=== PATIENT | female | born 1975 | race Caucasian/White ===

== ENCOUNTER 2020-03-13 14:18 | Emergency (ER) | payer BC ==
--- NOTE | 2020-03-13 14:29 | EDM.PDOC ---
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 She reports that she started spotting about 2 weeks ago when she expected her normal period to show up. Yesterday she started to bleed very heavily per vagina which is continued into today. She states she is passing clots almost the size of small tennis balls. Shaded diffuse lower abdominal cramping pain and mild low back pain. She is pretty confident she is not . Only abdominal surgery in the past has been a tubal ligation. She has never had dysfunctional uterine bleeding in the past. She reports that today she feels lightheaded dizzy and weak when standing. Not taken anything today for cramping pain but did take Motrin yesterday. She did eat and drink normally this morning. Far today she has soaked 4-5 pads. Onset: Sudden Onset Date: 03/12/20 (To bleed heavily per vagina yesterday) Duration: Hour(s): (Night.), Constant, Getting Worse Location: Reports: Abdomen (Use suprapubic abdominal cramping pain), Other (Heavy bleeding per vagina.) Quality: Reports: Sharp (Ramping pain i.e. menstrual cramping), Stabbing Severity: Moderate Improves with: Reports: None Worsens with: Reports: None Context: Reports: Other (Element of heavy bleeding per vagina starting yesterday with 2-week history of spotting prior to that.). Denies: Activity, Exercise, Lifting, Sick Contact, Trauma Associated Symptoms: Reports: Malaise, Other (Is lightheaded dizzy and generally weak.). 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 Denies: Fever, Chills, Weight Loss HEENT: Reports: No Symptoms Respiratory: Reports: No Symptoms Cardiovascular: Reports: No Symptoms Endocrine: Reports: Fatigue GI/Abdominal: Reports: Abdominal Pain (Prepubic abdominal cramping pain i.e. menstrual cramps.). Denies: Constipation, Diarrhea, Nausea, Stool Incontinence, Vomiting : Reports: Irregular Menses (Menorrhagia with heavy bleeding per vagina starting yesterday predated by 2-week history of spotting per vagina.). Denies: Dysuria, Flank Pain, Frequency Musculoskeletal: Reports: Back Pain (L diffuse low back pain) Skin: Reports: No Symptoms Neurological: Reports: Dizziness Psychiatric: Reports: No Symptoms Hematologic/Lymphatic: Reports: No Symptoms Immunologic: Reports: No Symptoms ED EXAM, RENAL/ - Physical Exam Exam: See Below Exam Limited By: No Limitations General Appearance: Alert, WD/WN, Anxious (Only anxious.), Other (Temperature is 37.3 heart rate is 75 and sinus respiratory to 16 pulse ox 100% on room air BP 130/89. Orthostatic BPs were normal.) Eye Exam: Bilateral Eye: Normal Inspection, PERRL, Other (Mild blepharal pallor.) Throat/Mouth: Normal Inspection, Normal Lips, Normal Oropharynx Head: Atraumatic, Normocephalic Neck: Normal Inspection, Supple, Non-Tender, Full Range of Motion. No: Carotid Bruit, Lymphadenopathy (L), Lymphadenopathy (R), Thyromegaly Respiratory/Chest: No Respiratory Distress, Lungs Clear, Normal Breath Sounds, No Accessory Muscle Use Cardiovascular: Normal Peripheral Pulses, Regular Rate, Rhythm, No Edema, No Murmur, No Rub GI/Abdominal: Normal Bowel Sounds, Soft, Non-Tender, No Organomegaly, No Distention, Tender. No: Guarding, Rigid, Rebound Extremities: Normal Inspection (Normally tender suprapubically no peritoneal signs.), Normal Range of Motion, Non-Tender, No Pedal Edema, Other Neurological: Alert, Oriented, CN II-XII Intact, Normal Cognition Psychiatric: Normal Mood, Anxious Skin Exam: Warm, Dry, Intact, Normal Color, No Rash Course - Vital Signs Last Recorded V/S: Last Vital Signs Temp 37.3 C 03/13/20 14:26 Pulse 75 03/13/20 14:26 Resp 16 03/13/20 14:26 BP 130/89 03/13/20 14:26 Pulse Ox 100 03/13/20 14:26 Orthostatic Blood Pressure [ 128/84 Standing] Orthostatic Blood Pressure [ 122/88 Supine] - Orders/Labs/Meds Labs: Laboratory Tests 03/13/20 03/13/20 03/13/20 Range/Units 14:35 14:37 14:37 WBC 9.27 (3.98-10.04) K/mm3 RBC 3.96 L (3.98-5.22) M/mm3 Hgb 11.7 (11.2-15.7) gm/dl Hct 35.6 (34.1-44.9) % MCV 89.9 (79.4-94.8) fl MCH 29.5 (25.6-32.2) pg MCHC 32.9 (32.2-35.5) g/dl RDW Std Deviation 42.0 (36.4-46.3) fL Plt Count 258 (182-369) K/mm3 MPV 10.0 (9.4-12.3) fl Neut % (Auto) 66.9 (34.0-71.1) % Lymph % (Auto) 22.1 (19.3-51.7) % [place] % (Auto) 7.2 (4.7-12.5) % Eos % (Auto) 3.2 (0.7-5.8) Baso % (Auto) 0.3 (0.1-1.2) % Neut # (Auto) 6.19 H (1.56-6.13) K/mm3 Lymph # (Auto) 2.05 (1.18-3.74) K/mm3 [place] # (Auto) 0.67 H (0.24-0.36) K/mm3 Eos # (Auto) 0.30 (0.04-0.36) K/mm3 Baso # (Auto) 0.03 (0.01-0.08) K/mm3 PT 10.4 (9.7-12.0) SECONDS INR 0.95 APTT 26 (22-31) SECONDS Sodium (136-145) mEq/L Potassium (3.5-5.1) mEq/L Chloride (98-107) mEq/L Carbon Dioxide (21-32) mEq/L Anion Gap (5-15) BUN (7-18) mg/dL Creatinine (0.55-1.02) mg/dL Est Cr Clr Drug Dosing mL/min Estimated GFR (MDRD) (>60) mL/min BUN/Creatinine Ratio (14-18) Glucose (74-106) mg/dL Calcium (8.5-10.1) mg/dL Total Bilirubin (0.2-1.0) mg/dL AST (15-37) U/L ALT (14-59) U/L Alkaline Phosphatase (46-116) U/L Total Protein (6.4-8.2) g/dl Albumin (3.4-5.0) g/dl Globulin gm/dL Albumin/Globulin Ratio (1-2) TSH 3rd Generation 3.590 (0.358-3.74) uIU/mL HCG, Quant mIU/mL Blood Type Gel Antibody Screen 03/13/20 03/13/20 Range/Units 14:37 14:37 WBC (3.98-10.04) K/mm3 RBC (3.98-5.22) M/mm3 Hgb (11.2-15.7) gm/dl Hct (34.1-44.9) % MCV (79.4-94.8) fl MCH (25.6-32.2) pg MCHC (32.2-35.5) g/dl RDW Std Deviation (36.4-46.3) fL Plt Count (182-369) K/mm3 MPV (9.4-12.3) fl Neut % (Auto) (34.0-71.1) % Lymph % (Auto) (19.3-51.7) % [place] % (Auto) (4.7-12.5) % Eos % (Auto) (0.7-5.8) Baso % (Auto) (0.1-1.2) % Neut # (Auto) (1.56-6.13) K/mm3 Lymph # (Auto) (1.18-3.74) K/mm3 [place] # (Auto) (0.24-0.36) K/mm3 Eos # (Auto) (0.04-0.36) K/mm3 Baso # (Auto) (0.01-0.08) K/mm3 PT (9.7-12.0) SECONDS INR APTT (22-31) SECONDS Sodium 140 (136-145) mEq/L Potassium 3.8 (3.5-5.1) mEq/L Chloride 104 (98-107) mEq/L Carbon Dioxide 27 (21-32) mEq/L Anion Gap 12.8 (5-15) BUN 11 (7-18) mg/dL Creatinine 0.9 (0.55-1.02) mg/dL Est Cr Clr Drug Dosing 76.23 mL/min Estimated GFR (MDRD) > 60 (>60) mL/min BUN/Creatinine Ratio 12.2 L (14-18) Glucose 88 (74-106) mg/dL Calcium 8.3 L (8.5-10.1) mg/dL Total Bilirubin 0.4 (0.2-1.0) mg/dL AST 17 (15-37) U/L ALT 24 (14-59) U/L Alkaline Phosphatase 66 (46-116) U/L Total Protein 7.1 (6.4-8.2) g/dl Albumin 3.5 (3.4-5.0) g/dl Globulin 3.6 gm/dL Albumin/Globulin Ratio 1.0 (1-2) TSH 3rd Generation (0.358-3.74) uIU/mL HCG, Quant < 1.0 mIU/mL Blood Type O NEGATIVE Gel Antibody Screen Negative Meds: Medications Discontinued Medications Generic Name Dose Route Start Last Admin Trade Name Freq PRN Reason Stop Dose Admin Estrogens Conjugated 25 mg 03/13/20 16:02 03/13/20 16:21 Premarin IVPUSH 03/13/20 16:03 25 mg ONETIME ONE Administration Dextrose/Sodium Chloride 1,000 mls @ 999 mls/hr 03/13/20 14:45 03/13/20 14:58 Dextrose 5%-Normal Saline IV 999 mls/hr ASDIRECTED ZAHRA Administration Ketorolac Tromethamine 30 mg 03/13/20 14:45 03/13/20 14:58 Toradol IVPUSH 30 mg ONETIME ZAHRA Administration Medroxyprogesterone Acetate 10 mg 03/13/20 16:02 03/13/20 16:21 Provera PO 03/13/20 16:03 10 mg ONETIME ONE Administration - Radiology Interpretation Free Text/Narrative:: 44-year-old female presents the ED with heavy menstrual bleeding or menorrhagia. This is predated by 2 weeks of spotting per vagina at the time she expected her normal period to start 2 weeks ago. She started bleeding very heavily per vagina yesterday and this continues today passing clots the size of tennis balls per vagina. Associated lower abdominal cramping pain. Starting to feel lightheaded dizzy and weak. States she has soaked 4-5 pads already today. She has never had heavy bleeding like this in the past. She denies any possibility of . Plan IV D5 normal saline at open. Toradol 30 mg IV for pain relief. Routine labs to include type and screen and a serum beta-hCG and TSH. - Re-Assessments/Exams Free Text/Narrative Re-Assessment/Exam: 03/13/20 15:11 White blood cell count is 9.27 with auto differential showing 67% neutrophils. Hemoglobin is 11.7 with hematocrit of 35.6. Platelet count 258,000. PT is 10.4 with an INR of 0.95 PTT is 26. 03/13/20 15:38 Quantitative hCG is less than 1.0. Sodium is 140 with a potas sium of 3.8 chloride 104 with a bicarb of 27. Anion gap is 12.8. BUN is 11 with a creatinine of 0.9. GFR is greater than 60. Glucose is 88 with a calcium of 8.3. Liver function normal total protein 7.1 with an albumin fraction of 3.5 TSH is normal at 3.59 03/13/20 16:04 the findings with the patient and decision made to proceed with Premarin 25 mg IV and start her on oral Provera 10 mg once daily for 10 days consecutively at bedtime. You should stop or come under good control within 48 hours. If not she will require follow-up with chain builder. 03/13/20 16:55 report that they were able to find the Premarin and administered the 25 mg IV as ordered. Also 1 tablet of Provera 10 mg strength to be taken at bedtime tonight. Script written for Provera 10 milligrams once daily at bedti fl for another 9 days. 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 Departure - Departure Time of Disposition: 16:56 Disposition: Home, Self-Care 01 Condition: Fair Clinical Impression: Dysfunctional uterine hemorrhage - Discharge Information *PRESCRIPTION DRUG MONITORING PROGRAM REVIEWED*: Not Applicable *COPY OF PRESCRIPTION DRUG MONITORING REPORT IN PATIENT BONG: Not Applicable Prescriptions: medroxyPROGESTERone [Provera] 10 mg PO DAILY #10 tab Referrals: PCP,None [Primary Care Provider] - Forms: ED Department Discharge Additional Instructions: Evaluation in the emergency room today in regards to heavy bleeding per vagina which we called menorrhagia. Lab tests revealed that your hemoglobin is still in the normal range at 11.7. Normal would be around 14.0. Low hemoglobin is under 9.0. test is negative. All the other lab tests were normal. Treatment is therefore Premarin 25 mg given intravenously in the ER to help stop the severe blood loss per vagina. You will also need to take a tablet of progesterone called Provera 10 mg every night at bedtime starting tonight. This will be taken once daily with some food for 10 days. Expect flow to decrease and almost subside within 48 hours. 2 to 3 days after the last Provera tablet has been taken you will have another.. The the idea is to reset your hormone balance and make the lining of uterus all grow at the same rate with the Provera tablet. If you continue to flow heavily or. Returns heavy in the near future you will require follow-up with a chain builder to have imaging of the lining of the uterus and perhaps endometrial biopsy performed.
[2020-03-13] MEDS ORDERED: Dextrose 5%-0.9% NaCl 1,000 ML IV SCH (14:45)
[2020-03-13] MEDS ORDERED: Ketorolac 30 MG/ML SDV IVPUSH SCH (14:45)
== END 2020-03-13 17:08 | disposition home or self-care (01) ==
LOC: JD.ED 14:18
DX: N93.8 Other specified abnormal uterine and vaginal bleeding (principal); Z90.49 Acquired absence of other specified parts of digestive tract
CPT/HCPCS: 36415; 80053; 84443; 84702; 85025; 85610; 85730; 86850; 86900; 86901; 96361; 96374; 96375; 99284; A9270; J1410; J1885; J7042

== ENCOUNTER 2020-12-12 09:30 | Emergency (ER) | payer BC ==
[2020-12-12] MEDS ORDERED: Sodium Chloride 0.9% 1,000 ML IV ONE (09:47)
[2020-12-12] MEDS ORDERED: Sodium Chloride 0.9% 10 ML Syringe FLUSH PRN (09:47)
--- NOTE | 2020-12-12 10:04 | EDM.PDOC ---
ED HPI GENERAL MEDICAL PROBLEM - General Chief Complaint: IMAGING ADMINISTRATOR Problem Stated Complaint: HEMORRHAGING Time Seen by Provider: 12/12/20 09:35 Source of Information: Reports: Patient History Limitations: Reports: No Limitations - History of Present Illness INITIAL COMMENTS - FREE TEXT/NARRATIVE: 45-year-old female presents to the emergency department with complaints of heavy vaginal bleeding for the past 4 days. Patient states that she started her menstrual cycle 4 days ago but her vaginal bleeding has increased significantly over the past 2 days. She states that she is passing large clots and going through about 2 pads every hour for the past 2 days. She states that 2 nights ago she passed a clot the size of an orange and 1 the same size yesterday morning. Patient states she is having mild lower abdominal cramping and mild cramping into her back. She states that her menstrual cycle is still regular coming about every 28 to 30 days and lasting about 4 to 5 days. She states that her flow is normally not heavy. She states that over the course the past 2 days when she stands up she becomes dizzy, and she is having some palpitations associated with this. She does report having a tubal ligation in the past so she does not feel she could be at this time. She states she had a similar incident to this a couple of months ago and was seen and treated in our emergency department. Lower Abdomen Pain Score (Numeric/FACES): 3 - Related Data Allergies Allergy/AdvReac Type Severity Reaction Status Date / Time No Known Allergies Allergy Verified 12/12/20 09:37 Home Meds: Home Meds Norethindrone Acetate [Aygestin] 10 mg PO DAILY #16 tablet 12/12/20 [Rx] Past Medical History IMAGING ADMINISTRATOR History: Reports: Other IMAGING ADMINISTRATOR History: , D/c 2009 - Past Surgical History GI Surgical History: Reports: Cholecystectomy (Laparoscopic cholecystectomy) Social & Family History - Family History Family Medical History: No Pertinent Family History - Tobacco Use Tobacco Use Status *Q: Never Tobacco User Second Hand Smoke Exposure: No - Caffeine Use Caffeine Use: Reports: None - Recreational Drug Use Recreational Drug Use: No - Living Situation & Occupation Living situation: Reports: Occupation: Unemployed ED ROS GENERAL - Review of Systems Review Of Systems: Comprehensive ROS is negative, except as noted in HPI. ED EXAM, RENAL/ - Physical Exam Exam: See Below Exam Limited By: No Limitations General Appearance: Alert, WD/WN, No Apparent Distress Ears: Normal External Exam, Hearing Grossly Normal Nose: Normal Inspection, Normal Mucosa Throat/Mouth: Normal Inspection, Normal Lips, Normal Voice, No Airway Compromise Head: Atraumatic, Normocephalic Neck: Normal Inspection, Supple, Non-Tender, Full Range of Motion Respiratory/Chest: No Respiratory Distress, Lungs Clear, Normal Breath Sounds, No Accessory Muscle Use, Chest Non-Tender Cardiovascular: Normal Peripheral Pulses, No Edema, No Murmur, Tachycardia (115) GI/Abdominal: Normal Bowel Sounds, Soft, Non-Tender, No Distention (Female) Exam: Normal External Exam, Normal Bimanual Exam, Vaginal Bleeding (moderate amount of active vaginal bleeding). No: Adnexal Mass, Adnexal Tenderness, Cervix Motion Tenderness Rectal (Female) Exam: Deferred Back Exam: Normal Inspection, Full Range of Motion Extremities: Normal Inspection, Normal Range of Motion, Non-Tender, No Pedal Edema, Normal Capillary Refill Neurological: Alert, Oriented, Normal Cognition Psychiatric: Normal Affect, Normal Mood Skin Exam: Warm, Dry, Intact, Normal Color, No Rash Lymphatic: No Adenopathy Course - Vital Signs Text/Narrative:: 45-year-old female with a 4-day history of vaginal bleeding and a 2-day history of very heavy vaginal bleeding passing large clots the size of an orange x2 episodes. She is going through about 2 pads per hour over the course the past 2 days. She is having mild menstrual cramping and back cramping. She states she had a similar episode to this about 2 months ago. Denies any recent fever, chills, nausea, vomiting, headache or diarrhea. States she is noticing that she is dizzy when she is standing up and ambulating and has noticed heart palpitations. Nursing staff has checked the patient and she is orthostatic. I have ordered a liter of IV fluids to be bolused, saline lock, labs, test, and a non-OB transvaginal ultrasound. Last Recorded V/S: Last Vital Signs Temp 98.1 F 12/12/20 09:35 Pulse 115 H 12/12/20 09:35 Resp 20 12/12/20 09:35 BP 125/97 H 12/12/20 09:35 Pulse Ox 100 12/12/20 09:35 Orthostatic Blood Pressure [ 100/79 Standing] Orthostatic Blood Pressure [ 116/75 Supine] - Orders/Labs/Meds Orders: Active Orders 24 hr Category Date Time Status Sodium Chloride 0.9% [Saline Flush] Med 12/12/20 09:47 Active 10 ml FLUSH ASDIRECTED PRN Saline Lock Insert [OM.PC] Stat Oth 12/12/20 09:47 Ordered Medication Orders Sodium Chloride (Sodium Chloride 0.9% 10 Ml Syringe) 10 ml FLUSH ASDIRECTED PRN PRN Reason: Keep Vein Open Last Admin: 12/12/20 09:54 Dose: 10 ml Documented by: DIXON Labs: Laboratory Tests 12/12/20 12/12/20 12/12/20 Range/Units 09:45 09:45 09:45 WBC 6.58 (3.98-10.04) K/mm3 RBC 3.40 L (3.98-5.22) M/mm3 Hgb 8.1 L D (11.2-15.7) gm/dl Hct 27.5 L (34.1-44.9) % MCV 80.9 D (79.4-94.8) fl MCH 23.8 L (25.6-32.2) pg MCHC 29.5 L (32.2-35.5) g/dl RDW Std Deviation 44.3 (36.4-46.3) fL Plt Count 299 (182-369) K/mm3 MPV 10.4 (9.4-12.3) fl Neut % (Auto) 66.2 (34.0-71.1) % Lymph % (Auto) 23.1 (19.3-51.7) % Iron % (Auto) 7.1 (4.7-12.5) % Eos % (Auto) 2.6 (0.7-5.8) Baso % (Auto) 0.8 (0.1-1.2) % Neut # (Auto) 4.36 (1.56-6.13) K/mm3 Lymph # (Auto) 1.52 (1.18-3.74) K/mm3 Iron # (Auto) 0.47 H (0.24-0.36) K/mm3 Eos # (Auto) 0.17 (0.04-0.36) K/mm3 Baso # (Auto) 0.05 (0.01-0.08) K/mm3 Manual Slide Review Abnormal smear Sodium 142 (136-145) mEq/L Potassium 3.7 (3.5-5.1) mEq/L Chloride 106 (98-107) mEq/L Carbon Dioxide 22 (21-32) mEq/L Anion Gap 17.7 H (5-15) BUN 9 (7-18) mg/dL Creatinine 1.0 (0.55-1.02) mg/dL Est Cr Clr Drug Dosing 67.91 mL/min Estimated GFR (MDRD) > 60 (>60) mL/min BUN/Creatinine Ratio 9.0 L (14-18) Glucose 129 H (74-106) mg/dL Calcium 8.6 (8.5-10.1) mg/dL Total Bilirubin 0.3 (0.2-1.0) mg/dL AST 16 (15-37) U/L ALT 20 (14-59) U/L Alkaline Phosphatase 58 (46-116) U/L Total Protein 6.5 (6.4-8.2) g/dl Albumin 3.3 L (3.4-5.0) g/dl Globulin 3.2 gm/dL Albumin/Globulin Ratio 1.0 (1-2) TSH 3rd Generation (0.358-3.74) uIU/mL HCG, Qual Negative (NEGATIVE) Urine Color (Yellow) Urine Appearance (Clear) Urine pH (5.0-8.0) Ur Specific Constantine (1.005-1.030) Urine Protein (Negative) Urine Glucose (UA) (Negative) Urine Ketones (Negative) Urine Occult Blood (Negative) Urine Nitrite (Negative) Urine Bilirubin (Negative) Urine Urobilinogen (0.2-1.0) Ur Leukocyte Esterase (Negative) Urine RBC (0-5) /hpf Urine WBC (0-5) /hpf Ur Squamous Epith Cells (0-5) /hpf Amorphous Sediment (NOT SEEN) /hpf Urine Bacteria (FEW) /hpf Urine Mucus (FEW) /hpf Blood Type Gel Antibody Screen 12/12/20 12/12/20 12/12/20 Range/Units 09:45 09:45 11:40 WBC (3.98-10.04) K/mm3 RBC (3.98-5.22) M/mm3 Hgb (11.2-15.7) gm/dl Hct (34.1-44.9) % MCV (79.4-94.8) fl MCH (25.6-32.2) pg MCHC (32.2-35.5) g/dl RDW Std Deviation (36.4-46.3) fL Plt Count (182-369) K/mm3 MPV (9.4-12.3) fl Neut % (Auto) (34.0-71.1) % Lymph % (Auto) (19.3-51.7) % Iron % (Auto) (4.7-12.5) % Eos % (Auto) (0.7-5.8) Baso % (Auto) (0.1-1.2) % Neut # (Auto) (1.56-6.13) K/mm3 Lymph # (Auto) (1.18-3.74) K/mm3 Iron # (Auto) (0.24-0.36) K/mm3 Eos # (Auto) (0.04-0.36) K/mm3 Baso # (Auto) (0.01-0.08) K/mm3 Manual Slide Review Sodium (136-145) mEq/L Potassium (3.5-5.1) mEq/L Chloride (98-107) mEq/L Carbon Dioxide (21-32) mEq/L Anion Gap (5-15) BUN (7-18) mg/dL Creatinine (0.55-1.02) mg/dL Est Cr Clr Drug Dosing mL/min Estimated GFR (MDRD) (>60) mL/min BUN/Creatinine Ratio (14-18) Glucose (74-106) mg/dL Calcium (8.5-10.1) mg/dL Total Bilirubin (0.2-1.0) mg/dL AST (15-37) U/L ALT (14-59) U/L Alkaline Phosphatase (46-116) U/L Total Protein (6.4-8.2) g/dl Albumin (3.4-5.0) g/dl Globulin gm/dL Albumin/Globulin Ratio (1-2) TSH 3rd Generation 1.584 (0.358-3.74) uIU/mL HCG, Qual (NEGATIVE) Urine Color Fela H (Yellow) Urine Appearance Slt cloudy H (Clear) Urine pH 6.5 (5.0-8.0) Ur Specific Constantine 1.015 (1.005-1.030) Urine Protein 1+ H (Negative) Urine Glucose (UA) Negative (Negative) Urine Ketones Negative (Negative) Urine Occult Blood 3+ H (Negative) Urine Nitrite Negative (Negative) Urine Bilirubin Negative (Negative) Urine Urobilinogen 0.2 (0.2-1.0) Ur Leukocyte Esterase Negative (Negative) Urine RBC 10-20 H (0-5) /hpf Urine WBC Not seen (0-5) /hpf Ur Squamous Epith Cells 0-5 (0-5) /hpf Amorphous Sediment Few H (NOT SEEN) /hpf Urine Bacteria Few (FEW) /hpf Urine Mucus Not seen (FEW) /hpf Blood Type O NEGATIVE Gel Antibody Screen Negative Meds: Medications Generic Name Dose Route Start Last Admin Trade Name Freq PRN Reason Stop Dose Admin Sodium Chloride 10 ml 12/12/20 09:47 12/12/20 09:54 Sodium Chloride 0.9% 10 Ml Syringe FLUSH 10 ml ASDIRECTED PRN Administration Keep Vein Open Discontinued Medications Generic Name Dose Route Start Last Admin Trade Name Freq PRN Reason Stop Dose Admin Sodium Chloride 1,000 mls @ 999 mls/hr 12/12/20 09:47 12/12/20 09:54 Normal Saline IV 12/12/20 10:47 999 mls/hr ONETIME ONE Administration Medroxyprogesterone Acetate 10 mg 12/12/20 12:35 Medroxyprogesterone 2.5 Mg Tab PO 12/12/20 12:36 ONETIME ONE - Re-Assessments/Exams Free Text/Narrative Re-Assessment/Exam: 12/12/20 11:17 Hematology reveals a WBC of 6.58, hemoglobin 8.1, hematocrit 27.5, platelet count 299, chemistry reveals a sodium of 142, potassium 3.7, anion gap 17.7, BUN 9, creatinine 1.0, glucose 129, TSH 1.584, hCG qualitative is negative. Radiologist impression pelvic ultrasound: 1. 1 small cyst within each ovary with measurements as noted above right ovary 3.6 x 2.4 x 2.8, left ovary 3.7 x 2.7 x 2.7. Small amount of free fluid is seen within the right adnexa. 2. Increased endometrial thickness at 2.7 cm. Endometrium also contains several cystic areas most likely representing areas of blood. 12/12/20 12:03 Patient has received a full liter of normal saline. She states she no longer feels weak or dizzy after receiving this. Patient's heart rate is now in the 80s. I have placed a call to Dr. Castillo, the IMAGING ADMINISTRATOR on-call to get his recommendations on this patient. 12/12/20 12:36 Dr. Castillo recommends the patient be discharged to home to rest. Push p.o. fluids. She needs to be given a dose of Aygestin here in the ER prior to discharge to home she will take another dose this evening of Aygestin 10 mg. She will then take Aygestin 10 mg daily for 7 days. If the patient's not significantly better in the next 24 hours she needs to be followed up in the clinic by Dr. Castillo and he states he will fit her into his schedule. Also recommend that the patient follow-up in the clinic sometime this week as she does not have an IMAGING ADMINISTRATOR established at this time. Departure - Departure Time of Disposition: 12:38 Disposition: Home, Self-Care 01 Condition: Fair Clinical Impression: Dysfunctional uterine hemorrhage - Discharge Information Prescriptions: Norethindrone Acetate [Aygestin] 10 mg PO DAILY #16 tablet Referrals: PCP,None [Primary Care Provider] - Forms: ED Department Discharge Additional Instructions: You were seen in the emergency department today with complaints of vaginal bleeding. Labs were completed and your hemoglobin was on the low side which showed that you had had significant vaginal bleeding. You were given IV fluids. A transvaginal ultrasound was completed and pelvic exam. Dr. Castillo, IMAGING ADMINISTRATOR, recommends that you be treated with Aygestin 10 mg. Your first dose was given in the emergency department. You will need to take another 10 mg this evening and then daily for the next 7 days. I have sent a prescription to your pharmacy for this. If your bleeding is not significantly better in the next 24 hours you will need to follow-up with Dr. Castillo at [facility] work you into their schedule. You can call to schedule an appointment at [phone]. Strongly recommend that you do follow-up with your provider, however, this week to establish care as this is your second episode of vaginal bleeding since February. Should your condition worsen or change, do not hesitate returning to the emergency department. Sepsis Event Note (ED) - Evaluation Sepsis Screening Result: No Definite Risk - Focused Exam Vital Signs: Vital Signs Temp Pulse Resp BP Pulse Ox 12/12/20 09:35 98.1 F 115 H 20 125/97 H 100 - My Orders Last 24 Hours: My Active Orders 12/12/20 09:47 Sodium Chloride 0.9% [Saline Flush] 10 ml FLUSH ASDIRECTED PRN Saline Lock Insert [OM.PC] Stat - Assessment/Plan Last 24 Hours: My Active Orders 12/12/20 09:47 Sodium Chloride 0.9% [Saline Flush] 10 ml FLUSH ASDIRECTED PRN Saline Lock Insert [OM.PC] Stat
--- NOTE | 2020-12-12 11:13 | US ---
Pelvic ultrasound: Multiple real-time images were obtained transvaginally. Uterus is anteverted. Endometrial thickness is increased at 2.7 cm. Small cystic areas are noted within the endometrium most likely representing areas of blood. Nabothian cysts are noted. Small amount of fluid is seen within the right adnexa. Small simple cyst is noted within the right ovary measuring 2.9 cm. Left ovary shows a slightly complicated cyst measuring 2.7 cm most likely representing a hemorrhage cyst. No larger cyst or solid abnormality is seen. Measurements: Right ovary: 3.6 x 2.4 x 2.8 cm Left ovary: 3.7 x 2.7 x 2.7 cm Uterus: Length 12.2 cm, AP height 6.4 cm, transverse width 9.0 cm Impression: 1. One small cyst within each ovary with measurements as noted above. Small amount of free fluid is seen within the right adnexa. 2. Increased endometrial thickness at 2.7 cm. Endometrium also contains several cystic areas most likely representing areas of blood. Diagnostic code #3
== END 2020-12-12 12:50 | disposition home or self-care (01) ==
LOC: JD.ED 09:30
DX: N93.8 Other specified abnormal uterine and vaginal bleeding (principal); Z98.51 Tubal ligation status
CPT/HCPCS: 36415; 76830; 80053; 81001; 84443; 84703; 85025; 86850; 86900; 86901; 99285; A9270; J7030; 99284

== ENCOUNTER 2020-12-27 13:51 | Emergency (ER) | payer BC ==
[2020-12-27] MEDS ORDERED: Ibuprofen 400 MG Tab PO ONE (15:03)
--- NOTE | 2020-12-27 15:31 | EDM.PDOC ---
ED HPI GENERAL MEDICAL PROBLEM - General Chief Complaint: Genitourinary Problem Stated Complaint: HEAVY VAGINAL BLEEDING/COVID + Time Seen by Provider: 12/27/20 14:18 Source of Information: Reports: Patient, RN Notes Reviewed History Limitations: Reports: No Limitations - History of Present Illness INITIAL COMMENTS - FREE TEXT/NARRATIVE: Patient is a 45-year-old female presenting to the emergency department with complaints of recurrence of heavy vaginal bleeding as well as a diagnosis of Covid today. She has been seen in this emergency department in the past due to heavy vaginal bleeding. At one point she did require a blood transfusion for hemoglobin of 7. She states that she saw Dr. Castillo, MACHINIST HELPER MARINE and was put on a course of progesterone. She finished that sometime late last week, however she is unsure of the exact date. She started oral control pills just today. She states that on Saturday she had some light vaginal spotting, yesterday she had a normal flow and today she has been bleeding more heavily. She estimates she is saturating a pad every hour or 2. She is concerned that her hemoglobin has dropped again. She does have some pelvic cramping as well as a sore throat. She has not taken anything for pain today. She also reports diarrhea on of last week, cough a few days ago, and then onset of sore throat and fever last evening. She was tested at the drive- through Covid testing site today and found to be positive. She denies significant shortness of breath but does state that it sometimes it feels a little difficult to take a deep breath. She has no underlying chronic medical conditions. 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 Denies: Shortness of Breath Cardiovascular: Reports: No Symptoms. Denies: Chest Pain, Lightheadedness, Syncope Endocrine: Reports: No Symptoms GI/Abdominal: Reports: No Symptoms : Reports: Irregular Menses, Pain (Mild pelvic cramping) Musculoskeletal: Reports: No Symptoms Skin: Reports: No Symptoms Neurological: Reports: No Symptoms Psychiatric: Reports: No Symptoms Hematologic/Lymphatic: Reports: No Symptoms Immunologic: Reports: No Symptoms ED EXAM, RENAL/ - Physical Exam Exam: See Below Exam Limited By: No Limitations General Appearance: Alert, WD/WN, No Apparent Distress Respiratory/Chest: No Respiratory Distress, Lungs Clear, Normal Breath Sounds, No Accessory Muscle Use, Chest Non-Tender Cardiovascular: Normal Peripheral Pulses, Regular Rate, Rhythm, No Edema, No Gallop, No JVD, No Murmur, No Rub GI/Abdominal: Normal Bowel Sounds, Soft, Non-Tender, No Organomegaly, No Distention, No Abnormal Bruit, No Mass Neurological: Alert, Oriented, CN II-XII Intact, Normal Cognition, Normal Gait, Normal Reflexes, No Motor/Sensory Deficits Psychiatric: Normal Affect, Normal Mood Skin Exam: Warm, Dry, Intact, Normal Color, No Rash Course - Vital Signs Last Recorded V/S: Last Vital Signs Temp 99.6 F 12/27/20 15:45 Pulse 80 12/27/20 15:45 Resp 16 12/27/20 15:45 BP 111/65 12/27/20 15:45 Pulse Ox 98 12/27/20 15:45 - Orders/Labs/Meds Labs: Laboratory Tests 12/27/20 12/27/20 Range/Units 14:29 14:29 WBC 9.07 (3.98-10.04) K/mm3 RBC 3.89 L (3.98-5.22) M/mm3 Hgb 10.3 L (11.2-15.7) gm/dl Hct 33.5 L (34.1-44.9) % MCV 86.1 (79.4-94.8) fl MCH 26.5 (25.6-32.2) pg MCHC 30.7 L (32.2-35.5) g/dl RDW Std Deviation 59.2 H (36.4-46.3) fL Plt Count 165 L D (182-369) K/mm3 MPV 10.8 (9.4-12.3) fl Neut % (Auto) 81.6 H (34.0-71.1) % Lymph % (Auto) 8.9 L (19.3-51.7) % Beadle % (Auto) 8.6 (4.7-12.5) % Eos % (Auto) 0.6 L (0.7-5.8) Baso % (Auto) 0.1 (0.1-1.2) % Neut # (Auto) 7.40 H (1.56-6.13) K/mm3 Lymph # (Auto) 0.81 L (1.18-3.74) K/mm3 Beadle # (Auto) 0.78 H (0.24-0.36) K/mm3 Eos # (Auto) 0.05 (0.04-0.36) K/mm3 Baso # (Auto) 0.01 (0.01-0.08) K/mm3 Manual Slide Review Abnormal smear Sodium 140 (136-145) mEq/L Potassium 3.5 (3.5-5.1) mEq/L Chloride 103 (98-107) mEq/L Carbon Dioxide 24 (21-32) mEq/L Anion Gap 16.5 H (5-15) BUN 9 (7-18) mg/dL Creatinine 0.8 (0.55-1.02) mg/dL Est Cr Clr Drug Dosing 84.88 mL/min Estimated GFR (MDRD) > 60 (>60) mL/min BUN/Creatinine Ratio 11.3 L (14-18) Glucose 113 H (74-106) mg/dL Calcium 8.3 L (8.5-10.1) mg/dL Total Bilirubin 0.9 (0.2-1.0) mg/dL AST 29 (15-37) U/L ALT 29 (14-59) U/L Alkaline Phosphatase 69 (46-116) U/L C-Reactive Protein 4.0 H* (<1.0) mg/dL Total Protein 6.8 (6.4-8.2) g/dl Albumin 3.4 (3.4-5.0) g/dl Globulin 3.4 gm/dL Albumin/Globulin Ratio 1.0 (1-2) Meds: Medications Discontinued Medications Generic Name Dose Route Start Last Admin Trade Name Neelam PRN Reason Stop Dose Admin Ibuprofen 400 mg 12/27/20 15:03 12/27/20 15:27 Ibuprofen 400 Mg Tab PO 12/27/20 15:04 400 mg ONETIME ONE Administration - Re-Assessments/Exams Free Text/Narrative Re-Assessment/Exam: Patient is a 45-year-old female presenting to the emergency department with complaints of recurrence of heavy vaginal bleeding. She completed a course of progesterone late last week and states that she began bleeding on Saturday. It was initially some light spotting but today has worsened. She is also been experiencing some diarrhea on which is since resolved, a mild cough a few days ago and onset of sore throat and fever last evening. She was tested at the drive-through rapid testing site today and found to be positive for Covid. I have ordered CBC, CMP, CRP, 1 view chest, and ibuprofen 400 mg p.o. Oxygen saturations have been 97 to 100% on room air since arrival. 12/27/20 15:[address] Castillo. He recommended that the patient double her control dose for 3 days and then go back to once a day after that. Chest x-ray shows no abnormalities. Discussed this plan with the patient and she is in agreement. She has no comorbid medical conditions and her BMI is less than 35, therefore she does not qualify for monoclonal antibody treatment. We will discharge her home. Discussed return precautions. Discharge instructions as documented. Departure - Departure Time of Disposition: 15:35 Disposition: Home, Self-Care 01 Condition: Good Clinical Impression: Dysfunctional uterine hemorrhage, COVID-19 - Discharge Information *PRESCRIPTION DRUG MONITORING PROGRAM REVIEWED*: No *COPY OF PRESCRIPTION DRUG MONITORING REPORT IN PATIENT BONG: No Instructions: COVID-19 Frequently Asked Questions, Abnormal Uterine Bleeding Referrals: Trent Castillo MD [Primary Care Provider] - Forms: ED Department Discharge Additional Instructions: You were seen in the emergency department today for evaluation with regards to return of heavy vaginal bleeding as well as a diagnosis of COVID-19. Work-up included blood work and chest x-ray. Your hemoglobin was found to be 10.3 which is fairly stable from where it has been on your previous visits. Chest x-ray was found to be normal. There is no signs of viral pneumonia. Your case was discussed with Dr. Castillo. He recommend that you double your control dose for 3 days. Take 1 in the morning and 1 in the evening. After that you may go back to once a day. Recommend routine Tylenol and ibuprofen as needed for fever and discomfort. Ensure that you are taking an adequate amount of fluid. If the bleeding fails to improve over the next few days or you develop any new or worsening symptoms of concern, please not hesitate to return to the emergency department for reevaluation. Sepsis Event Note (ED) - Evaluation Sepsis Screening Result: Possible Sepsis Risk - Focused Exam Vital Signs: Vital Signs Temp Pulse Resp BP Pulse Ox 12/27/20 15:45 99.6 F 80 16 111/65 98 12/27/20 13:57 97.6 F 91 18 127/82 99
--- NOTE | 2020-12-27 15:33 | CR ---
Chest: Portable view of the chest was obtained. Comparison: No previous chest imaging is available. Heart size and mediastinum are normal. Lungs are clear. Slight scoliosis is noted within the spine. Bony structures are otherwise grossly intact. Impression: 1. Nothing acute is appreciated on portable chest x-ray. Diagnostic code #2
== END 2020-12-27 15:45 | disposition home or self-care (01) ==
LOC: JD.ED 13:51
DX: U07.1 COVID-19 (principal); N93.8 Other specified abnormal uterine and vaginal bleeding
CPT/HCPCS: 36415; 71045; 80053; 83690; 85025; 86140; 99284; A9270; 99283

== ENCOUNTER 2020-12-29 10:34 | Emergency (ER) | payer BC ==
[2020-12-29] MEDS ORDERED: LORazepam 0.5 MG Tab PO ONE (11:28)
--- NOTE | 2020-12-29 11:37 | EDM.PDOC ---
ED HPI GENERAL MEDICAL PROBLEM - General Chief Complaint: Behavioral/Psych Stated Complaint: ANXIETY FROM MEDS Time Seen by Provider: 12/29/20 11:04 Source of Information: Reports: Patient, RN Notes Reviewed History Limitations: Reports: No Limitations - History of Present Illness INITIAL COMMENTS - FREE TEXT/NARRATIVE: Patient is a 45-year-old female who presents to the ER for her anxiety. Patient is known to be Covid positive, tested on 12/27/2020, with symptoms starting before that on 12/22/2020. She notes she is still in her quarantine phase at this time. Patient does have a history of heavy vaginal bleeding that required blood transfusion semirecently. She was placed on control for the vaginal bleeding symptoms. Patient was seen in this ER 2 days ago for increased heavy vaginal bleeding, she was directed to take her Elinest twice daily for 3 days to see if this helped stop or slow the bleeding. She states that this has helped the vaginal bleeding, she is having some mild abdominal cramping and the bleeding is now acting more like a regular menses. She does state however that she feels increasingly anxious like she cannot breathe, she has nasal congestion, but no worsening cough or chest heaviness. She is not sure if the Covid symptoms and or the medications are causing anxiety nonetheless she feels quite anxious. Again she does state that the vaginal bleeding has gotten better. She states that she does not feel dizzy or lightheaded. 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: Reports: Dysfunctional Uterine Bleeding, Other LIFE ENRICHMENT SPECIALIST History: , D/c 2009 - Infectious Disease History Infectious Disease History: Reports: Novel Coronavirus - Past Surgical History GI Surgical History: Reports: Cholecystectomy Social & Family History - Family History Family Medical History: No Pertinent Family History - Tobacco Use Tobacco Use Status *Q: Never Tobacco User - Caffeine Use Caffeine Use: Reports: None - Recreational Drug Use Recreational Drug Use: No - Living Situation & Occupation Living situation: Reports: Occupation: Unemployed ED ROS GENERAL - Review of Systems Review Of Systems: Comprehensive ROS is negative, except as noted in HPI. ED EXAM, GENERAL - Physical Exam Exam: See Below Exam Limited By: No Limitations General Appearance: Alert, WD/WN, No Apparent Distress, Anxious (generalized) Throat/Mouth: Normal Inspection, Normal Lips, Normal Teeth, Normal Gums, Normal Oropharynx, Normal Voice, No Airway Compromise Head: Atraumatic, Normocephalic Respiratory/Chest: No Respiratory Distress, Lungs Clear, Normal Breath Sounds, No Accessory Muscle Use, Chest Non-Tender Cardiovascular: Normal Peripheral Pulses, Regular Rate, Rhythm, No Edema Peripheral Pulses: 2+: Radial (L), Radial (R) Extremities: Normal Inspection, Normal Capillary Refill Neurological: Alert Psychiatric: Anxious (generalized, pt is fidgety) Skin Exam: Warm, Dry, Intact, Normal Color, No Rash Course - Vital Signs Last Recorded V/S: Last Vital Signs Temp 99.1 F 12/29/20 11:11 Pulse 80 12/29/20 11:11 Resp 20 12/29/20 11:11 BP 113/70 12/29/20 11:11 Pulse Ox 100 12/29/20 11:11 - Orders/Labs/Meds Meds: Medications Discontinued Medications Generic Name Dose Route Start Last Admin Trade Name Neelam PRN Reason Stop Dose Admin Lorazepam 1 mg 12/29/20 11:28 12/29/20 11:46 Lorazepam 0.5 Mg Tab PO 12/29/20 11:29 1 mg ONETIME ONE Administration Phenylephrine HCl 1 ml 12/29/20 12:00 Phenylephrine 0.5% Nasal Grant 15 Ml Bot NASBOTH 12/29/20 12:01 ONETIME ONE - Re-Assessments/Exams Free Text/Narrative Re-Assessment/Exam: 12/29/20 11:36 Patient presents to the ER for her anxiety. Unsure as if this could be part of the nasal congestion due to the Covid, and her feeling like she cannot breathe, making her slightly anxious versus medication she was given. I would however like her to continue the course of medication as laid forth by Dr. Castillo, she has 1 more day of taking the Elinest twice daily, I will try to get her a short course of Ativan for her anxiety if it seems to help her. Patient verbalized understanding of this plan. She states that she did try calling Dr. Castillo's office however they directed her to come to the ER for evaluation. 12/29/20 12:02 Patient was feeling better regarding her anxiety, but is requesting something for her nasal congestion, have ordered phenylephrine nasal spray to see if this can help relieve some of her symptoms if we have it in stock. Since she is already feeling anxious, I do not want her to take a lot of [id number] cold remedies, as it might make her feel more anxious. Departure - Departure Time of Disposition: 12:21 Disposition: Home, Self-Care 01 Condition: Good Clinical Impression: COVID-19, Anxiety - Discharge Information *PRESCRIPTION DRUG MONITORING PROGRAM REVIEWED*: Yes *COPY OF PRESCRIPTION DRUG MONITORING REPORT IN PATIENT BONG: No Instructions: 10 Things You Can Do to Manage Your COVID-19 Symptoms at Home - [facility], Managing Anxiety, Adult Referrals: Trent Castillo MD [Primary Care Provider] - Forms: ED Department Discharge Additional Instructions: You were seen in this ER for your anxiety and ongoing COVID-19 symptoms. Please continue your medication prescribed by your LIFE ENRICHMENT SPECIALIST as directed, for today's dosing purposes for your ongoing vaginal bleeding. You were given a dose of oral Ativan in the ER for anxiety, this seemed to relieve most your symptoms. You were also given a nasal spray to use for the next few days for nasal congestion. Please use as directed on the back of the bottle. You were given a demonstration on how to use this effectively. You were given a prescription for Ativan, this medication was electronically sent to the [place] pharmacy located in the [facility] grocery store. You will need to take 1 tablet up to 3 times a day as needed for ongoing anxiety symptoms. Please coordinate your care with your LIFE ENRICHMENT SPECIALIST, Dr. Castillo, for your vaginal bleeding, to make sure that it is getting better as expected. You did report you were having some decrease in vaginal bleeding with the increased dosing of your control medication he had placed you on. This is a good thing. As for your COVID-19, you might likely feel under the weather for the next few days, but everything should be getting better in a short amount of time for you. You may take some Tylenol [id number], for general aches and pains. Please return to the ER at any time if your symptoms change or worsen. Sepsis Event Note (ED) - Evaluation Sepsis Screening Result: No Definite Risk - Focused Exam Vital Signs: Vital Signs Temp Pulse Resp BP Pulse Ox 12/29/20 11:11 99.1 F 80 20 113/70 100
[2020-12-29] MEDS ORDERED: Phenylephrine 0.5% Nasal Spray 15 ML Bot NASBOTH ONE (12:00)
== END 2020-12-29 12:45 | disposition home or self-care (01) ==
LOC: SUPCPDRO 10:34 → JD.ED 10:34
DX: F41.9 Anxiety disorder, unspecified (principal); U07.1 COVID-19
CPT/HCPCS: 99283; A9270; 99284

== ENCOUNTER 2021-09-10 11:04 | Emergency (ER) | payer BC ==
[2021-09-10] MEDS ORDERED: Sodium Chloride 0.9% 10 ML Syringe FLUSH PRN (11:29)
--- NOTE | 2021-09-10 11:35 | EDM.PDOC ---
ED HPI GENERAL MEDICAL PROBLEM - General Chief Complaint: COUNSELOR/ART THERAPIST Problem Stated Complaint: BLEEDING/PASSING BLOOD CLOTS Time Seen by Provider: 09/10/21 11:27 Source of Information: Reports: Patient, RN Notes Reviewed History Limitations: Reports: No Limitations - History of Present Illness INITIAL COMMENTS - FREE TEXT/NARRATIVE: Patient is a 46-year-old female who presents to the ER for her continued vaginal bleeding. Patient states she is to have a hysterectomy with Dr. Castillo on Sunday, September 12, 2021. She states that she has had vaginal bleeding for some time, but it did worsen this a.m. at around 7:00. She is now going through roughly 2 maxi pads per hour. Patient is feeling dizzy and lightheaded, and slightly nauseous. she is having a little bit of abdominal discomfort as well. States she is passing some clot-like material as well. Patient denies any other sick-like symptoms, fever/chills, cough/shortness of breath, nausea/vomiting/diarrhea. 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: Reports: Dysfunctional Uterine Bleeding, Other COUNSELOR/ART THERAPIST History: , D/c 2009 - Infectious Disease History Infectious Disease History: Reports: Novel Coronavirus - Past Surgical History GI Surgical History: Reports: Cholecystectomy Social & Family History - Family History Family Medical History: No Pertinent Family History - Tobacco Use Tobacco Use Status *Q: Never Tobacco User Second Hand Smoke Exposure: No - Caffeine Use Caffeine Use: Reports: Coffee, Soda - Recreational Drug Use Recreational Drug Use: No - Living Situation & Occupation Living situation: Reports: Occupation: Unemployed ED ROS GENERAL - Review of Systems Review Of Systems: Comprehensive ROS is negative, except as noted in HPI. ED EXAM, RENAL/ - Physical Exam Exam: See Below Exam Limited By: No Limitations General Appearance: Alert, WD/WN, No Apparent Distress Respiratory/Chest: No Respiratory Distress, Lungs Clear, Normal Breath Sounds, No Accessory Muscle Use, Chest Non-Tender Cardiovascular: Normal Peripheral Pulses, Regular Rate, Rhythm, No Edema GI/Abdominal: Normal Bowel Sounds, Soft, Non-Tender, No Distention, No Mass (Female) Exam: Deferred Extremities: Normal Inspection, Normal Capillary Refill Neurological: Alert, Oriented, Normal Cognition, No Motor/Sensory Deficits Psychiatric: Normal Affect, Normal Mood Skin Exam: Warm, Dry, Intact, Normal Color, No Rash Course - Vital Signs Last Recorded V/S: Last Vital Signs Temp 97.0 F 09/10/21 19:01 Pulse 80 09/10/21 19:01 Resp 15 09/10/21 19:01 BP 117/78 09/10/21 19:01 Pulse Ox 100 09/10/21 19:01 - Orders/Labs/Meds Orders: Active Orders 24 hr Category Date Time Status Peripheral IV Care [RC] . DIRECTED Care 09/10/21 11:29 Active Sodium Chloride 0.9% [Normal Saline] 250 ml Med 09/10/21 13:00 Active IV ASDIRECTED Sodium Chloride 0.9% [Saline Flush] Med 09/10/21 11:29 Active 10 ml FLUSH ASDIRECTED PRN Peripheral IV Insertion Adult [OM.PC] Routine Oth 09/10/21 11:29 Ordered Transfuse Red Blood Cells [COMM] Stat Oth 09/10/21 12:56 Ordered Medication Orders Sodium Chloride (Normal Saline) 250 mls @ 250 mls/hr IV ASDIRECTED ZAHRA Stop: 09/11/21 13:59 Last Admin: 09/10/21 13:19 Dose: 250 mls/hr Documented by: ALDAIR Sodium Chloride (Sodium Chloride 0.9% 10 Ml Syringe) 10 ml FLUSH ASDIRECTED PRN PRN Reason: Keep Vein Open Last Admin: 09/10/21 12:42 Dose: 10 ml Documented by: ALDAIR Labs: Laboratory Tests 09/10/21 09/10/21 09/10/21 Range/Units 12:30 12:30 12:30 WBC 12.68 H (3.98-10.04) K/mm3 RBC 3.33 L (3.98-5.22) M/mm3 Hgb 7.2 L* D (11.2-15.7) gm/dl Hct 25.1 L (34.1-44.9) % MCV 75.4 L (79.4-94.8) fl MCH 21.6 L (25.6-32.2) pg MCHC 28.7 L (32.2-35.5) g/dl RDW Std Deviation 49.1 H (36.4-46.3) fL Plt Count 425 H D (182-369) K/mm3 MPV 10.3 (9.4-12.3) fl Neut % (Auto) 73.5 H (34.0-71.1) % Lymph % (Auto) 16.5 L (19.3-51.7) % [place] % (Auto) 8.3 (4.7-12.5) % Eos % (Auto) 0.9 (0.7-5.8) Baso % (Auto) 0.5 (0.1-1.2) % Neut # (Auto) 9.32 H (1.56-6.13) K/mm3 Lymph # (Auto) 2.09 (1.18-3.74) K/mm3 [place] # (Auto) 1.05 H (0.24-0.36) K/mm3 Eos # (Auto) 0.12 (0.04-0.36) K/mm3 Baso # (Auto) 0.06 (0.01-0.08) K/mm3 Manual Slide Review Abnormal smear HCG, Qual Negative (NEGATIVE) SARS-CoV-2 RNA ([place]) (NEGATIVE) Blood Type O NEGATIVE Gel Antibody Screen Negative Crossmatch See Detail 09/10/21 Range/Units 12:52 WBC (3.98-10.04) K/mm3 RBC (3.98-5.22) M/mm3 Hgb (11.2-15.7) gm/dl Hct (34.1-44.9) % MCV (79.4-94.8) fl MCH (25.6-32.2) pg MCHC (32.2-35.5) g/dl RDW Std Deviation (36.4-46.3) fL Plt Count (182-369) K/mm3 MPV (9.4-12.3) fl Neut % (Auto) (34.0-71.1) % Lymph % (Auto) (19.3-51.7) % [place] % (Auto) (4.7-12.5) % Eos % (Auto) (0.7-5.8) Baso % (Auto) (0.1-1.2) % Neut # (Auto) (1.56-6.13) K/mm3 Lymph # (Auto) (1.18-3.74) K/mm3 [place] # (Auto) (0.24-0.36) K/mm3 Eos # (Auto) (0.04-0.36) K/mm3 Baso # (Auto) (0.01-0.08) K/mm3 Manual Slide Review HCG, Qual (NEGATIVE) SARS-CoV-2 RNA ([place]) Negative (NEGATIVE) Blood Type Gel Antibody Screen Crossmatch Meds: Medications Generic Name Dose Route Start Last Admin Trade Name Freq PRN Reason Stop Dose Admin Sodium Chloride 250 mls @ 250 mls/hr 09/10/21 13:00 09/10/21 13:19 Normal Saline IV 09/11/21 13:59 250 mls/hr ASDIRECTED ZAHRA Administration Sodium Chloride 10 ml 09/10/21 11:29 09/10/21 12:42 Sodium Chloride 0.9% 10 Ml Syringe FLUSH 10 ml ASDIRECTED PRN Administration Keep Vein Open Discontinued Medications Generic Name Dose Route Start Last Admin Trade Name Freq PRN Reason Stop Dose Admin Ketorolac Tromethamine 30 mg 09/10/21 12:12 09/10/21 12:42 Ketorolac 30 Mg/Ml Sdv IVPUSH 09/10/21 12:13 30 mg ONETIME ONE Administration Ondansetron HCl 4 mg 09/10/21 13:14 09/10/21 13:19 Ondansetron 4 Mg/2 Ml Sdv IVPUSH 09/10/21 13:15 4 mg ONETIME ONE Administration Tranexamic Acid 1,000 mg 09/10/21 12:52 09/10/21 13:07 Tranexamic Acid 1,000 Mg/10 Ml Amp IVPUSH 09/10/21 12:53 1,000 mg ONETIME ONE Administration - Re-Assessments/Exams Free Text/Narrative Re-Assessment/Exam: 09/10/21 11:35 Patient presents to the ER for evaluation of her continued vaginal bleeding, we will have an IV placed, get some basic labs and type and screen for initial management. We will consult OB once we get the labs back and see if they have any concerns or suggestions to get her through until Saturday for her hysterectomy. 09/10/21 13:48 Was able to talk with Dr. Paredes, patient's hemoglobin was down to 7.2, she does recommend trying TXA and giving 2 units of blood for ongoing management in hopes that she can attend her surgery date on Saturday. If the patient does not seem to be stopping her bleeding up or is continuing to bleed as profusely as she has been, I will call Dr. Paredes back little bit later. 09/10/21 16:50 Patient seems to be doing better, she has more color to her skin, the bleeding seems to be slowing down. Patient was made aware that she is to have labs done tomorrow for recheck, I think this is an okay plan. Plan now would be to send her home overnight get outpatient labs tomorrow and attend her hysterectomy as scheduled on Saturday, and return to ER if anything seems to change or worsen. Departure - Departure Time of Disposition: 16:51 Disposition: Home, Self-Care 01 Condition: Good Clinical Impression: Low hemoglobin, Dysfunctional uterine bleeding - Discharge Information *PRESCRIPTION DRUG MONITORING PROGRAM REVIEWED*: No *COPY OF PRESCRIPTION DRUG MONITORING REPORT IN PATIENT BONG: No Instructions: Abnormal Uterine Bleeding, [id number] Referrals: Trent Castillo MD [Physician] - 2 Days (keep appt with Dr. Castillo for hysterectomy) Forms: ED Department Discharge Additional Instructions: You were evaluated in the ER today for your increased vaginal bleeding. Your hemoglobin was found to be low at 7.2 and you did require transfusion of blood at today's visit. You were also given a medication called tranexamic acid, to help slow the flow of your bleeding. This did seem to help relieve some of the bleeding. It appears that the orders for bloodwork tomorrow were placed by Dr. Castillo's office for your impending surgery; please get the labs performed tomorrow as ordered. Please continue all other medications as previously prescribed by your COUNSELOR/ART THERAPIST a regular care provider. Please follow all other instructions from your COUNSELOR/ART THERAPIST for your impending surgery on Saturday, September 12, 2021. Continue to monitor your vaginal bleeding, if it should increase again to the amount of the bleeding you are having this morning, you should return to the ER for more immediate management. Otherwise if it seems to be more of a normal flow, again you can follow-up with Dr. Castillo, and continue with surgery on Saturday. Do not hesitate to return to the ER at any time if symptoms change or worsen. Sepsis Event Note (ED) - Focused Exam Vital Signs: Vital Signs Temp Temp Pulse Resp BP Pulse Ox 09/10/21 19:01 97.0 F 80 15 117/78 100 09/10/21 16:58 97.0 F 88 15 117/58 L 100 09/10/21 16:38 96.9 F 84 14 120/72 98 09/10/21 14:31 97.0 F 85 14 119/71 99 09/10/21 14:11 96.9 F 89 15 125/64 100 09/10/21 11:26 97.4 F 101 H 18 157/107 H 100 - My Orders Last 24 Hours: My Active Orders 09/10/21 11:29 Peripheral IV Care [RC] . DIRECTED Sodium Chloride 0.9% [Saline Flush] 10 ml FLUSH ASDIRECTED PRN Peripheral IV Insertion Adult [OM.PC] Routine 09/10/21 12:56 Transfuse Red Blood Cells [COMM] Stat 09/10/21 13:00 Sodium Chloride 0.9% [Normal Saline] 250 ml IV ASDIRECTED - Assessment/Plan Last 24 Hours: My Active Orders 09/10/21 11:29 Peripheral IV Care [RC] . DIRECTED Sodium Chloride 0.9% [Saline Flush] 10 ml FLUSH ASDIRECTED PRN Peripheral IV Insertion Adult [OM.PC] Routine 09/10/21 12:56 Transfuse Red Blood Cells [COMM] Stat 09/10/21 13:00 Sodium Chloride 0.9% [Normal Saline] 250 ml IV ASDIRECTED
[2021-09-10] MEDS ORDERED: Ketorolac 30 MG/ML SDV IVPUSH ONE (12:12)
[2021-09-10] MEDS ORDERED: Sodium Chloride 0.9% 250 ML IV SCH (13:00)
[2021-09-10] MEDS ORDERED: Ondansetron 4 MG/2 ML SDV IVPUSH ONE (13:14)
== END 2021-09-10 19:40 | disposition home or self-care (01) ==
LOC: JD.ED 11:04
DX: N93.8 Other specified abnormal uterine and vaginal bleeding (principal); D64.9 Anemia, unspecified; Z20.822 Contact with and (suspected) exposure to COVID-19
CPT/HCPCS: 36415; 36430; 84703; 85025; 86850; 86900; 86901; 86922; 87635; 96374; 96375; 99284; J1885; J2405; J7050; P9016; 99285; U0002

== ENCOUNTER 2021-09-12 08:06 | Day surgery (SDC) | payer BC ==
[~2021-09-12 08:06] MED LIST: Lactated Ringers 1,000 ML IV SCH; Lidocaine 1% with EPINEPHrine 1:100,000 20 ML MDV ONE; Lidocaine 1%/Sod Bicarbonate in NS 8.4% 1 ML Syringe IDERM PRN; Sodium Chloride 0.9% 10 ML Syringe FLUSH SCH; Sodium Chloride 0.9% 50 ML SDV ONE
[2021-09-12] MEDS ORDERED: Lidocaine 1% 4 ML ONE (08:52)
[2021-09-12] MEDS ORDERED: Midazolam 1 MG/ML 2 ML SDV ONE (08:53)
[2021-09-12] MEDS ORDERED: Propofol 200 MG/20 ML SDV ONE (08:53)
[2021-09-12] MEDS ORDERED: fentaNYL 250 MCG/5 ML SDV ONE (08:53)
[2021-09-12] MEDS ORDERED: Succinylcholine/Sod PF 100 MG/5 ML SYRINGE IV ONE (08:53)
[2021-09-12] MEDS ORDERED: ceFAZolin 1 GM Vial ONE (08:58)
[2021-09-12] MEDS ORDERED: Rocuronium 50 MG/5 ML Vial ONE (09:04)
[2021-09-12] MEDS ORDERED: Ondansetron 4 MG/2 ML SDV ONE ×2 (09:04→09:52)
--- NOTE | 2021-09-12 09:14 | PCM.PREANE ---
Preanesthetic Assessment - Procedure Proposed Procedure: Total vaginal hysterectomy - Anesthesia/Transfusion/Family Hx Anesthesia History: Prior Anesthesia Without Reaction - Review of Systems General: No Symptoms Pulmonary: No Symptoms Cardiovascular: No Symptoms Gastrointestinal: No Symptoms Neurological: No Symptoms Other: Reports: None - Physical Assessment NPO Status Date: 09/11/21 NPO Status Time: 21:00 Vital Signs: Last Vital Signs Temp 99.2 F 09/12/21 08:10 Pulse 91 09/12/21 08:10 Resp 16 09/12/21 08:10 BP 139/93 H 09/12/21 08:10 Pulse Ox 98 09/12/21 08:10 Height: 1.68 m Weight: 91 kg ASA Class: 2 Mental Status: Alert & Oriented x3 Airway Class: Mallampati = 2 Dentition: Reports: Normal Dentition Thyro-Mental Finger Breadths: 3 Mouth Opening Finger Breadths: 3 ROM/Head Extension: Full Lungs: Clear to Auscultation, Normal Respiratory Effort Cardiovascular: Regular Rate, Regular Rhythm - Allergies Allergies/Adverse Reactions: Allergies Allergy/AdvReac Type Severity Reaction Status Date / Time No Known Allergies Allergy Verified 09/12/21 08:27 - Acknowledgements Anesthesia Type Planned: General Anesthesia Pt an Appropriate Candidate for the Planned Anesthesia: Yes Alternatives and Risks of Anesthesia Discussed w Pt/Guardian: Yes Pt/Guardian Understands and Agrees with Anesthesia Plan: Yes PreAnesthesia Questionnaire - Past Health History Medical/Surgical History: Denies Medical/Surgical History Gastrointestinal History: Reports: Other (See Below) Other Gastrointestinal History: nausea 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: Dysfunctional Uterine Bleeding, Other OB/BYN History: , D&C 2010, menorrhagia, urinary incontenence, spontaneous , vaginal deliveries Hematologic History: Reports: Anemia - Infectious Disease History Infectious Disease History: Reports: Novel Coronavirus - Past Surgical History GI Surgical History: Reports: Cholecystectomy - SUBSTANCE USE Tobacco Use Status *Q: Never Tobacco User Recreational Drug Use History: No - HOME MEDS Home Medications: Home Meds Norethindrone [Aygestin] 5 mg PO ASDIRECTED 09/10/21 [History] - CURRENT (IN HOUSE) MEDS Current Meds: Current Medications Sodium Chloride (Sodium Chloride 0.9% 10 Ml Syringe) 10 ml FLUSH 0900,2100 ZAHRA Stop: 09/12/21 18:00 Discontinued Medications Cefazolin Sodium (Cefazolin 1 Gm Vial) Confirm Administered Dose 2 gm .ROUTE .STK-MED ONE Stop: 09/12/21 08:59 Fentanyl (Fentanyl 250 Mcg/5 Ml Sdv) Confirm Administered Dose 250 mcg .ROUTE .STK-MED ONE Stop: 09/12/21 08:54 Lactated Ringer's (Ringers, Lactated) 1,000 mls @ 125 mls/hr IV ASDIRECTED ZAHRA Stop: 09/12/21 23:00 Last Admin: 09/12/21 08:15 Dose: 125 mls/hr Documented by: Lidocaine HCl (Xylocaine-Mpf 1%) Confirm Administered Dose 4 mls @ as directed .ROUTE .STK-MED ONE Stop: 09/12/21 08:53 Lidocaine/Epinephrine (Lidocaine 1% With Epinephrine 1:100,000 20 Ml Mdv) Confirm Administered Dose 20 ml .ROUTE .STK-MED ONE Stop: 09/12/21 07:27 Lidocaine/Sodium Bicarbonate (Lidocaine 1%/Sod Bicarbonate In Ns 8.4% 1 Ml Syringe) 0.25 ml IDERM ONETIME PRN PRN Reason: Prior to IV Start Stop: 09/12/21 18:00 Midazolam HCl (Midazolam 1 Mg/Ml 2 Ml Sdv) Confirm Administered Dose 2 mg .ROUTE .STK-MED ONE Stop: 09/12/21 08:54 Ondansetron HCl (Ondansetron 4 Mg/2 Ml Sdv) Confirm Administered Dose 4 mg . ROUTE .STK-MED ONE Stop: 09/12/21 09:05 Propofol (Propofol 200 Mg/20 Ml Sdv) Confirm Administered Dose 200 mg .ROUTE .STK-MED ONE Stop: 09/12/21 08:54 Rocuronium [place] (Rocuronium 50 Mg/5 Ml Vial) Confirm Administered Dose 50 mg .ROUTE .STK-MED ONE Stop: 09/12/21 09:05 Sodium Chloride (Sodium Chloride 0.9% 50 Ml Sdv) Confirm Administered Dose 50 ml .ROUTE .STK-MED ONE Stop: 09/12/21 07:27
[2021-09-12] MEDS ORDERED: Lactated Ringers 1,000 ML ONE (09:30)
[2021-09-12] MEDS ORDERED: fentaNYL 100 MCG/2 ML SDV IVPUSH PRN (09:47)
[2021-09-12] MEDS ORDERED: HYDROmorphone 0.5 MG/0.5 ML Syringe IVPUSH PRN (09:47)
[2021-09-12] MEDS ORDERED: Ketorolac 30 MG/ML SDV ONE (10:40)
--- NOTE | 2021-09-12 11:04 | PCM.POSTAN ---
POST ANESTHESIA ASSESSMENT - MENTAL STATUS Mental Status: Somnolent - VITAL SIGNS Vital Signs: Last Vital Signs Temp 98.5 F 09/12/21 10:55 Pulse 98 09/12/21 10:55 Resp 13 09/12/21 10:55 BP 126/76 09/12/21 10:55 Pulse Ox 100 09/12/21 10:55 - RESPIRATORY Respiratory Status: Respiratory Rate WNL, Airway Patent, O2 Saturation Stable, Supplemental Oxygen - CARDIOVASCULAR CV Status: Pulse Rate WNL, Blood Pressure Stable - GASTROINTESTINAL GI Status: No Symptoms - PAIN Pain Score: 0 - POST OP HYDRATION Hydration Status: Adequate & Stable
--- NOTE | 2021-09-12 11:09 | PCM.OPNOTE ---
- General Post-Op/Procedure Note Date of Surgery/Procedure: 09/12/21 Operative Procedure(s): 1. Total vaginal hysterectomy with bilateral salpingectomy. 2. Subfascial mid urethral sling Findings: Uterus was enlarged with multiple fibroids present. Weight was 404 g. Ovaries bilaterally were functional and normal in appearance. Bilateral tubes are somewhat swollen but otherwise normal in appearance. There is blood in the posterior cul-de-sac. Pre Op Diagnosis: 1. Abnormal uterine bleeding. 2. Stress urinary incontinence. 3. Fibroids Post-Op Diagnosis: Same Anesthesia Technique: General ET Tube Other Anesthesia Type: Lidocaine quarter percent with [id number] mLlocal Primary Surgeon: Trent Castillo Secondary Surgeon: Eriberto Bolden Anesthesia Provider: Jorge L Araya Automatic Punch Press Operator: Phoebe Beckwith Reason Automatic Punch Press Operator Was Necessary: Retraction, assistance, patient safety, quality of care. Pathology: Uterus, bilateral fallopian tubes in one specimen container Fluid Replacement, Intraop: 1,900 Output, Urine Amount: 150 EBL in mLs: 120 Drain/Tube Comments:: Red rubber catheterused to fill and to drain bladder in the surgery. Complications: None Condition: Good Free Text/Narrative:: Surgery duration: 65 minutes Procedure: The patient was placed in supine position on the operating table. Patient received 2 g of Ancef preoperatively for infection prophylaxis and had sequential compression devices in place for DVT prophylaxis. General endotrac heal anesthesia was accomplished. After positioning, and adequate prep and drape, the procedure was then performed. Bladder was emptied with resultant 150 cc of urine. Sterile speculum was placed in the vagina and cervix was visualized. Cervix was injected with lidocaine quarter percent with epinephrine- 20 mL used. A full circumference incision was made in the cervical epithelium. The bladder was pushed well back off cervix. Posterior cul-de-sac was then entered sharply without problems. Left uterosacral was crossclamped with a Enseal vessel closure system. The left uterosacral and then the right uterosacral ligament pedicles were developed using the Enseal system. The anterior cul-de-sac was then entered without problems and the uterine vasculature, cardinal ligament and broad ligament then developed using Enseal vessel closure system. The uterus was inverted at this time and upper broad ligament fallopian tube pedicles were crossclamped with Jose Juan clamps. Specimen was totally removed. Both these pedicles were then secured with a Jose Juan stitch of #1 Vicryl. Left and right fallopian tube was normal in appearance. Using Enseal vessel closure system each of the tubes was then removed and sent with the specimen. The patient was found to be hemostatically intact at this time. Vaginal cuff was sutured for hemostatic reasons with a running locked suture of 0 Monocryl from the 2 o'clock position to the 10 o'clock position posteriorly. Vaginal cuff was then closed from left to right side with a running locked suture of 0 Monocryl. 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 She was given general endotracheal anesthesia. She was placed in the dorsal lithotomy position. The epithelium overlying the urethra was grasped approximately 1 cm from the urethral meatus and approximately 2 cm cephalad from there with Allis clamps. The area of the skin overlying the medial aspect of the obturator foramen on each side just posterior to the origin the abductor longus muscle was marked with a marking pen. These 2 areas and the sub-fascial layer of the vaginal were then infiltrated with lidocaine quarter percent with epinephrine total of approximately 10 mL was used. incisions made in the epithelium overlying the urethra and 2 small stab wounds 3 mm in length were made in the 2 areas of the panty line of the patient. The subfascial planes were adequately dissected bilaterally to allow placement of the mesh. The helical adapter was then placed through the obturator on patient's left side, then brought out through the vaginal subfascial plane. Mesh was attached to it and then was pulled back through the obturator foramen. Same was done on the right side. Mesh was then snugged up to a 15 mm diameter dilator which was was used as a spacer to place the mesh in a tension-free position. At this point the mesh was cut off at the skin surface and the dilator was removed. The midline epithelium was closed with a short running suture of 3-0 Monocryl. Skin incisions were closed with Dermabond skin glue. These bladder was filled with approximately 250 cc of normal saline to facilitate voiding and therefore discharged home. The patient was returned to supine position, awakened from general endotracheal anesthesia and was discharged from operating room in good condition
[2021-09-12] MEDS ORDERED: Acetaminophen/oxyCODONE 325-5 MG Tab PO ONE (12:10)
--- NOTE | 2021-09-12 13:46 | PCM48HPAN ---
Post Anesthesia Note - EVALUATION WITHIN 48HRS OF ANESTHETIC Vital Signs in Normal Range: Yes Patient Participated in Evaluation: Yes Respiratory Function Stable: Yes Airway Patent: Yes Cardiovascular Function Stable: Yes Hydration Status Stable: Yes Pain Control Satisfactory: Yes Nausea and Vomiting Control Satisfactory: Yes Mental Status Recovered: Yes Vital Signs: Last Vital Signs Temp 98.1 F 09/12/21 12:00 Pulse 77 09/12/21 12:50 Resp 16 09/12/21 12:50 BP 129/79 09/12/21 12:00 Pulse Ox 98 09/12/21 12:50 - COMMENTS/OBSERVATIONS Free Text/Narrative:: Preparing for discharge home
== END 2021-09-12 12:50 | disposition home or self-care (01) ==
LOC: JD.SDS 08:06
PROVIDERS: ATTEND Obstetrics & Gynecology
DX: D25.1 Intramural leiomyoma of uterus (principal); D25.2 Subserosal leiomyoma of uterus; N39.3 Stress incontinence (female) (male); N87.9 Dysplasia of cervix uteri, unspecified; N72 Inflammatory disease of cervix uteri; N80.0 Endometriosis of uterus; Z98.890 Other specified postprocedural states; Z90.49 Acquired absence of other specified parts of digestive tract
CPT/HCPCS: 57288; 58291; A9270; C1771; J0330; J0690; J1885; J2250; J2405; J2704; J3010; J7120; 00944

== ENCOUNTER 2021-09-14 11:26 | Emergency (ER) | payer BC ==
[2021-09-14] MEDS ORDERED: Sodium Chloride 0.9% 10 ML Syringe FLUSH PRN (11:49)
[2021-09-14] MEDS ORDERED: Sodium Chloride 0.9% 1,000 ML IV ONE (11:49)
--- NOTE | 2021-09-14 12:00 | EDM.PDOC ---
ED HPI GENERAL MEDICAL PROBLEM - General Chief Complaint: General Stated Complaint: PASSING OUT, JUST HAD SURGERY Time Seen by Provider: 09/14/21 11:48 Source of Information: Reports: Patient, RN Notes Reviewed History Limitations: Reports: No Limitations - History of Present Illness INITIAL COMMENTS - FREE TEXT/NARRATIVE: Patient is a 46-year-old female presents to the ER for her not feeling well after her partial hysterectomy on Saturday. Patient has a extensive history of vaginal bleeding requiring several blood transfusions. She did receive a partial hysterectomy on Saturday via Dr. Castillo. They state that her blood levels were "not quite up to normal" but they did not think that she received blood in her surgery. Patient states that she still feels dizzy and ligh theaded, she has been eating and drinking as she should but she does feel as dizzy as she did prior to the surgery and the prior ER visit where she required 2 units of blood. No sick symptoms like fevers or chills, nausea vomiting or diarrhea. States that she only has a mild amount of vaginal spotting, and is wearing a diaper for this. Lower Pelvic Pain Score (Numeric/FACES): 4 - Related Data Allergies Allergy/AdvReac Type Severity Reaction Status Date / Time No Known Allergies Allergy Verified 09/12/21 08:27 Home Meds: Home Meds Norethindrone [Aygestin] 5 mg PO ASDIRECTED 09/10/21 [History] Past Medical History Gastrointestinal History: Reports: Other (See Below) Other Gastrointestinal History: nausea HOSPITAL UNIT COORDINATOR History: Reports: Dysfunctional Uterine Bleeding, Other HOSPITAL UNIT COORDINATOR History: , D/c 2009 Hematologic History: Reports: Anemia - Infectious Disease History Infectious Disease History: Reports: Novel Coronavirus - Past Surgical History GI Surgical History: Reports: Cholecystectomy Female Surgical History: Reports: Hysterectomy (partial) Social & Family History - Family History Family Medical History: No Pertinent Family History - Tobacco Use Tobacco Use Status *Q: Never Tobacco User - Caffeine Use Caffeine Use: Reports: Coffee, Energy Drinks, Soda, Tea - Recreational Drug Use Recreational Drug Use: No - Living Situation & Occupation Living situation: Reports: Occupation: Unemployed ED ROS GENERAL - Review of Systems Review Of Systems: Comprehensive ROS is negative, except as noted in HPI. ED EXAM, GENERAL - Physical Exam Exam: See Below Exam Limited By: No Limitations General Appearance: Alert, WD/WN, No Apparent Distress Respiratory/Chest: No Respiratory Distress, Lungs Clear, Normal Breath Sounds, No Accessory Muscle Use, Chest Non-Tender Cardiovascular: Normal Peripheral Pulses, Regular Rate, Rhythm, No Edema Peripheral Pulses: 2+: Radial (L), Radial (R) Extremities: Normal Inspection, Normal Capillary Refill Neurological: Alert, Oriented, Normal Cognition, No Motor/Sensory Deficits Psychiatric: Normal Affect, Normal Mood Skin Exam: Warm, Dry, Intact, No Rash, Pallor (generalized) Course - Vital Signs Last Recorded V/S: Last Vital Signs Temp 97.7 F 09/14/21 14:34 Pulse 68 09/14/21 14:34 Resp 15 09/14/21 14:34 BP 123/83 09/14/21 14:34 Pulse Ox 97 09/14/21 14:34 - Orders/Labs/Meds Orders: Active Orders 24 hr Category Date Time Status Peripheral IV Care [RC] . DIRECTED Care 09/14/21 11:49 Active Sodium Chloride 0.9% [Normal Saline] 250 ml Med 09/14/21 13:15 Active IV ASDIRECTED Sodium Chloride 0.9% [Saline Flush] Med 09/14/21 11:49 Active 10 ml FLUSH ASDIRECTED PRN Peripheral IV Insertion Adult [OM.PC] Routine Oth 09/14/21 11:49 Ordered Transfuse Red Blood Cells [COMM] Stat Oth 09/14/21 13:07 Ordered Medication Orders Sodium Chloride (Normal Saline) 250 mls @ 100 mls/hr IV ASDIRECTED ZAHRA Last Admin: 09/14/21 14:24 Dose: 100 mls/hr Documented by: Sodium Chloride (Sodium Chloride 0.9% 10 Ml Syringe) 10 ml FLUSH ASDIRECTED PRN PRN Reason: Keep Vein Open Last Admin: 09/14/21 12:07 Dose: 10 ml Documented by: MYRON Labs: Laboratory Tests 09/14/21 09/14/21 09/14/21 Range/Units 11:49 11:49 12:29 WBC 8.80 (3.98-10.04) K/mm3 RBC 3.35 L (3.98-5.22) M/mm3 Hgb 8.0 L (11.2-15.7) gm/dl Hct 27.1 L (34.1-44.9) % MCV 80.9 (79.4-94.8) fl MCH 23.9 L (25.6-32.2) pg MCHC 29.5 L (32.2-35.5) g/dl RDW Std Deviation 55.8 H (36.4-46.3) fL Plt Count 310 (182-369) K/mm3 MPV 10.8 (9.4-12.3) fl Neut % (Auto) 65.2 (34.0-71.1) % Lymph % (Auto) 20.9 (19.3-51.7) % [place] % (Auto) 10.2 (4.7-12.5) % Eos % (Auto) 2.8 (0.7-5.8) Baso % (Auto) 0.6 (0.1-1.2) % Neut # (Auto) 5.73 (1.56-6.13) K/mm3 Lymph # (Auto) 1.84 (1.18-3.74) K/mm3 [place] # (Auto) 0.90 H (0.24-0.36) K/mm3 Eos # (Auto) 0.25 (0.04-0.36) K/mm3 Baso # (Auto) 0.05 (0.01-0.08) K/mm3 Sodium 142 (136-145) mEq/L Potassium 3.7 (3.5-5.1) mEq/L Chloride 107 (98-107) mEq/L Carbon Dioxide 28 (21-32) mEq/L Anion Gap 10.7 (5-15) BUN 11 (7-18) mg/dL Creatinine 0.9 (0.55-1.02) mg/dL Est Cr Clr Drug Dosing 74.67 mL/min Estimated GFR (MDRD) > 60 (>60) mL/min BUN/Creatinine Ratio 12.2 L (14-18) Glucose 106 H (70-99) mg/dL Calcium 7.5 L (8.5-10.1) mg/dL Total Bilirubin 0.3 (0.2-1.0) mg/dL AST 26 (15-37) U/L ALT 39 (14-59) U/L Alkaline Phosphatase 46 (46-116) U/L Total Protein 6.2 L (6.4-8.2) g/dl Albumin 2.8 L (3.4-5.0) g/dl Globulin 3.4 gm/dL Albumin/Globulin Ratio 0.8 L (1-2) Blood Type O NEGATIVE Gel Antibody Screen Negative Crossmatch See Detail Meds: Medications Generic Name Dose Route Start Last Admin Trade Name Freq PRN Reason Stop Dose Admin Sodium Chloride 250 mls @ 100 mls/hr 09/14/21 13:15 09/14/21 14:24 Normal Saline IV 100 mls/hr ASDIRECTED ZAHRA Administration Sodium Chloride 10 ml 09/14/21 11:49 09/14/21 12:07 Sodium Chloride 0.9% 10 Ml Syringe FLUSH 10 ml ASDIRECTED PRN Administration Keep Vein Open Discontinued Medications Generic Name Dose Route Start Last Admin Trade Name Freq PRN Reason Stop Dose Admin Sodium Chloride 1,000 mls @ 999 mls/hr 09/14/21 11:49 09/14/21 12:07 Normal Saline IV 09/14/21 12:49 999 mls/hr ONETIME ONE Administration - Re-Assessments/Exams Free Text/Narrative Re-Assessment/Exam: 09/14/21 12:00 Patient presents to the ER for evaluation of her not feeling well after surgery. We will go ahead and get some labs for further evaluation. I have also ordered fluids to be started. 09/14/21 13:10 Hemoglobin was low at 8.0. Patient's hemoglobin prior to surgery was 8.[address] Bolden for consultation to see if we should transfuse or not he states that his my clinical judgment due to the patient having recent surgery, its likely that it could be low due to this. With the patient being symptomatic and it being the long weekend, I will order 1 unit of blood to be transfused for ongoing management. Patient verbalized understanding. 09/14/21 16:53 Blood is done infusing, the patient is feeling much better we will have her discharged home and follow all the recommendations set forth by her surgeon. She will need to follow-up as directed, or come back to ER if bleeding increases or dizziness worsens. Departure - Departure Time of Disposition: 16:53 Disposition: Home, Self-Care 01 Condition: Good Clinical Impression: Low hemoglobin - Discharge Information *PRESCRIPTION DRUG MONITORING PROGRAM REVIEWED*: No *COPY OF PRESCRIPTION DRUG MONITORING REPORT IN PATIENT BONG: No Instructions: Anemia Referrals: Trent Castillo MD [Primary Care Provider] - Forms: ED Department Discharge Additional Instructions: You were evaluated in the ER today for your ongoing dizziness. Your hemoglobin was found to be a little bit low at 8.0, you were given 1 unit of blood for management of this. This seemed to help relieve some of your symptoms. Follow-up with your surgeon as directed at your next visit. Do not hesitate to return to the ER at any time if symptoms should change or worsen, such as dizziness, or vaginal bleeding should increase. Sepsis Event Note (ED) - Focused Exam Vital Signs: Vital Signs Temp Temp Pulse Resp BP Pulse Ox 09/14/21 14:34 97.7 F 68 15 123/83 97 09/14/21 14:15 98.1 F 67 15 134/77 09/14/21 11:43 98.0 F 72 20 136/83 100 - My Orders Last 24 Hours: My Active Orders 09/14/21 11:49 Peripheral IV Care [RC] . DIRECTED Sodium Chloride 0.9% [Saline Flush] 10 ml FLUSH ASDIRECTED PRN Peripheral IV Insertion Adult [OM.PC] Routine 09/14/21 13:07 Transfuse Red Blood Cells [COMM] Stat 09/14/21 13:15 Sodium Chloride 0.9% [Normal Saline] 250 ml IV ASDIRECTED - Assessment/Plan Last 24 Hours: My Active Orders 09/14/21 11:49 Peripheral IV Care [RC] . DIRECTED Sodium Chloride 0.9% [Saline Flush] 10 ml FLUSH ASDIRECTED PRN Peripheral IV Insertion Adult [OM.PC] Routine 09/14/21 13:07 Transfuse Red Blood Cells [COMM] Stat 09/14/21 13:15 Sodium Chloride 0.9% [Normal Saline] 250 ml IV ASDIRECTED
[2021-09-14] MEDS ORDERED: Sodium Chloride 0.9% 250 ML IV SCH (13:15)
== END 2021-09-14 17:07 | disposition home or self-care (01) ==
LOC: JD.ED 11:26
DX: D64.9 Anemia, unspecified (principal); Z86.16 Personal history of COVID-19
CPT/HCPCS: 36415; 36430; 80053; 85025; 86850; 86900; 86901; 86922; 99284; J7030; J7050; P9016